=== PATIENT | female | born 1955 | race Caucasian/White ===

== ENCOUNTER → 2017-09-08 | Outpatient (CLI) | payer MEDICARE, OTHER ==
[2015-01-15 10:01] VITALS: BMI 25.1
[~2017-09-08] MED LIST: ALBU8.5H IH; AMOX-559 PO; ASPI-879 PO; AZIT-1 PO; AZIT-18 PO; BENZ200C15 PO; BUPR1PAT10 TD; BUPR1PAT10 TP; CEF300 PO; CETI10CA8 PO; CLAR250T35 PO; DICL100G39 TOP; DICY20TA70 PO; DOXY-179 PO; DOXY-181 PO; FLU45SYR17 IM; FLU45SYR25 IM ONLY; FLUC150T40 PO; FLUT16SP19 NS; FLUT1BLS3 INH; GUAI600T57 PO; HYDR-393 PO; HYDR-4305 PO; HYDR12.561 PO; IPRA3AMP21 IH; LEVA0.6320 NEB; LEVO-85 PO; METO100T20 PO; MUPI15CR2 TP; OLOOD OU; ONDA4TAB97 PO; OXYGENHOME INH; PANT40TA65 PO; POLY10DR20 OP; PRED-1 PO; PRED20TA6 PO; RANI75TA5 PO; SIMV-54 PO; TAPE100T9 PO; TAPE50TA10 PO; TIOT4MIS5 INH; VALA100059 PO; ZOST19404 SQ; nebulizer
--- NOTE | 2017-09-08 16:09 | RADIOLOGY IMAGING REPORT ---
FACILITY: [facility] - [place] PATIENT NAME: Trice Tabares : 1955 MR: [id number] V: [id number] EXAM DATE: ORDERING PHYSICIAN: TRUPTI FERRO TECHNOLOGIST: Location: [facility] [place] Patient: Trice Tabares : 1955 Visit/Account:[id number] Date of Sevice: 09/08/2017 Examination: CHEST PA AND LAT Comparison: None. History: Cough x10 days Findings: Cardiac silhouette size is within normal limits. Mild interstitial thickening. No consolida tion or nodule. Mild lung base volume loss versus scarring. Osseous structures are intact. IMPRESSION: Mild bronchial thickening which could be an acute versus chronic bronchitis or reactive airway diseas e. Report Dictated By: Jimenez Seay MD at 09/08/2017 4:04 PM Report E-Signed By: Jimenez Seay MD at 09/08/2017 4:07 PM WSN:[id number]
== END ==
LOC: RAD 15:28
PROVIDERS: ATTEND Nurse Practitioner Primary Care
DX: R91.8 Other nonspecific abnormal finding of lung field (principal)
CPT/HCPCS: 71046

== ENCOUNTER 2017-11-07 10:25 | Emergency (ER) | payer MEDICARE, OTHER ==
[2015-01-15 10:01] VITALS: Wt 72.7 kg
[~2017-11-07 10:25] MED LIST changes: +CITA-137 PO
[2017-11-07] MEDS ORDERED: RANI-366 PO (10:46)
[2017-11-07] MEDS ORDERED: CLIN300C99 PO (10:46)
[2017-11-07] MEDS ORDERED: OMEP-218 PO (10:46)
[2017-11-07] MEDS ORDERED: NS(*) 0.9% 1000 ML BAG 1,000 ML IV ONE (10:55)
--- NOTE | 2017-11-07 11:12 | ER Report ---
History and Physical Time Seen By MD: 11:09 Hx. of Stated Complaint: PT REPORTS LOW ABDOMINAL PAIN AND PAIN WITH BOWEL MOVEMENTS, BRIGHT RED BLOOD IN BOWEL MOVEMENTS FOR SEVERAL HOURS THIS MORNING, X4/5, MUCOUS-LIKE; HAS DENTAL PROBLEMS AND UNABLE TO CHEW FOOD WELL HPI/ROS CHIEF COMPLAINT: Abdominal pain HISTORY OF PRESENT ILLNESS: This is a 62-year-old female who presents to the emergency department for abdominal pain. Patient states that about 06/01/1929 this morning she woke up with. The intense abdominal pain. Patient states she went to the bathroom had some loose stools with some very firm small pellets as well. Patient's also states that this happen several times throughout the night however she noticed the last time she went to the bathroom there was bright red blood with some mucus mixed in. Patient states she typically has "constipation issues" secondary to chronic opioid use for her osteoarthritis and fibromyalgia. Patient denies aches, chills, nausea, vomiting no chest pain or shortness of breath. REVIEW OF SYSTEMS: Constitutional: No fever, no chills. Eyes: No discharge. ENT: No sore throat. Cardiovascular: No chest pain, no palpitations. Respiratory: No cough, no shortness of breath. Gastrointestinal: As above. Genitourinary: No hematuria. Musculoskeletal: No back pain. Skin: No rashes. Neurological: No headache. Allergies: Coded Allergies: duloxetine (Verified Allergy, Mild, RASH, 09/17/17) Sulfa (Sulfonamide Antibiotics) (Unverified Allergy, Unknown, 01/13/15) gabapentin (Unverified Allergy, Unknown, 01/24/15) pregabalin (Unverified Allergy, Unknown, HIVES, 01/24/15) levofloxacin (Verified Adverse Reaction, Unknown, 05/11/15) ankle pain and diarrhea Home Meds Active Scripts Ciprofloxacin Hcl (CIPROFLOXACIN HCL) 500 Mg Tablet, 500 MG PO QID for 7 Days, # 28 TAB 0 Refills Prov:BRENT JAFFE NURSE ESTHETICIAN-BC 11/07/17 Metronidazole (METRONIDAZOLE) 500 Mg Tablet, 500 MG PO TID for 7 Days, #21 TAB 0 Refills Prov:BRENT JAFFE NURSE ESTHETICIAN-BC 11/07/17 Acetaminophen/Hydrocodone (HYDROCODON-ACETAMINOPHN 10-325) 1 Each Tab, 1 EACH PO Q6H Y for PAIN, #30 TAB 0 Refills Prov:STEFFI CHRISTENSEN APRN-C 10/27/17 Metoprolol Succinate (METOPROLOL SUCCINATE) 100 Mg Tab.er.24h, 1 TAB PO BID, # 180 TAB 1 Refill Prov:STEFFI CHRISTENSEN APRN-C 09/28/17 Buprenorphine (Butrans) 1 Each Patch.tdwk, 1 PATCH TP QWEEK, #4 PATCH 0 Refills Prov:STEFFI CHRISTENSEN APRN-C 09/17/17 Tapentadol Hcl (NUCYNTA) 100 Mg Tablet, 1 TAB PO BID, #60 TAB 0 Refills May fill on or after 08/18/17 Prov:STEFFI CHRISTENSEN APRN-C 09/17/17 Fluticasone Prop 50 Mcg Ns (FLONASE 50 MCG NS) 16 Gm [place].susp, 2 SPRAYS NS QDAY, #1 BOT 1 Refill Prov:TRUPTI FERRO DNP, FNP-SOUTH 09/14/17 Polymyxin B Sulf/Trimethoprim (POLYTRIM EYE DROPS) 10 Ml Drops, 1 DROP OP QID for 10 Days, #1 BOTTLE 0 Refills 1 drop to each eye four times daily for 10 days. Prov:TRUPTI FERRO DNP, FNP-BC 07/27/17 Mupirocin Chris 2% Cream (MUPIROCIN 2% CREAM) 15 Gm Cream..g., 1 SANCHO TP TID, #1 TUBE 1 Refill Apply to lesion 3 times daily until resolved - follow up if not improving after 3-5 days Prov:STEFFI CHRISTENSEN APRN-C 06/19/17 Simvastatin (SIMVASTATIN) 40 Mg Tablet, 1 TAB PO HS, #90 TAB 3 Refills Prov:STEFFI CHRISTENSEN APRN-C 04/22/17 Hydrochlorothiazide (HYDROCHLOROTHIAZIDE) 12.5 Mg Tablet, 1 TAB PO QDAY, #90 TAB 3 Refills Prov:STEFFI CHRISTENSEN APRN-C 03/02/17 Dicyclomine Hcl (DICYCLOMINE HCL) 20 Mg Tablet, 1 TAB PO QID Y for bowel cramps , #40 TAB 0 Refills Prov:TRUPTI FERRO DNP, FNP-BC 12/26/16 Olopatadine (PATANOL) 5 Ml Soln, 1 GTT OU BID, #5 ML 5 Refills Prov:TRUPTI FERRO DNP, NURSE ESTHETICIAN-BC 09/19/16 Reported Medications Clindamycin Hcl (CLINDAMYCIN HCL) 300 Mg Capsule, 150 MG PO Q6H, #40 CAPSULE 11/07/17 Ranitidine Hcl (ZANTAC) 150 Mg Tablet, 150 MG PO QDAY, TAB 11/07/17 Omeprazole Magnesium (PRILOSEC OTC) 20 Mg Tablet.dr, 1 TAB PO QDAY, TAB 11/07/17 Albuterol Sulfate 90 Mcg/Act (PROAIR HFA 90 MCG/ACT) 8.5 Gm Hfa.aer.ad, 2 PUFF IH Q4-6H, INHALER 07/15/16 Tiotropium [place] (Spiriva Respimat) Unknown Strength Mist.inhal, 2 INH INH DAILY 07/15/16 Cetirizine Hcl (ZYRTEC) 10 Mg Capsule, 10 MG PO QDAY, CAPSULE 01/13/15 Aspirin/Calcium Carbonate/Mag (ASPIRIN BUFFERED 325 MG TAB) 325 Mg Tablet, 325 MG PO BID 01/13/15 Discontinued Scripts Citalopram Hydrobromide (CITALOPRAM HBR) 10 Mg Tablet, 1 TAB PO QDAY, #30 TAB 2 Refills start with 1/2 tab dialy x 1 week then increase to 1 tab daily Prov:STEFFI CHRISTENSEN APRN NURSE ESTHETICIAN-C 09/17/17 Ipratropium/Albuterol Sulfate (IPRAT-ALBUT 0.5-3(2.5) MG/3 ML) 3 Ml Ampul.neb, 3 ML IH Q4-6H Y for WHEEZING, #30 VIAL 0 Refills Prov:TRUPTI FERRO DNP, NURSE ESTHETICIAN-BC 09/02/17 Pantoprazole Sodium (PANTOPRAZOLE SODIUM) 40 Mg Tablet.dr, 1 TAB PO BID, #60 TAB 0 Refills Take 1 tablet every morning and every evening at least 1/2 hour before eating. 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 Reviewed Nurses Notes: Yes Hx Smoking: Yes (1.5-2 packs a day) Smoking Status: Current: Every Day Smoker Hx Substance Use Disorder: No Hx Alcohol Use: No Constitutional Vital Sign - Last 24 Hours 11/07/17 11/07/17 11/07/17 11/07/17 10:25 10:30 10:34 10:40 Temp 98.2 Pulse ??? 58 54 Resp 16 B/P (MAP) 146/65 146/65 (92) Pulse Ox 91 93 O2 Delivery Nasal Cannula 11/07/17 11/07/17 11/07/17 11/07/17 10:55 11:00 11:10 11:25 Pulse 50 50 50 B/P (MAP) 107/67 (80) Pulse Ox 91 90 91 11/07/17 11/07/17 11/07/17 11/07/17 11:30 11:45 12:00 12:15 Pulse ? 53 55 B/P (MAP) 105/55 (72) 116/62 (80) Pulse Ox 96 95 11/07/17 11/07/17 12:30 12:45 Pulse 53 54 B/P (MAP) 107/55 (72) Pulse Ox 94 95 Intake and Output 11/07/17 11/07/17 11/08/17 14:59 22:59 06:59 Intake Total 1000 ml Balance 1000 ml Physical Exam General Appearance: The patient is alert, has no immediate need for airway protection and no signs of toxicity, wearing oxygen. Eyes: Pupils equal and round no pallor or injection. ENT, Mouth: Mucous membranes are moist. Respiratory: There are no retractions, lungs are clear to auscultation. Cardiovascular: Regular rate and rhythm. Gastrointestinal: Abdomen is soft and tenderness to the left lower quadrant, no masses, bowel sounds normal. Neurological: Alert and oriented 4. All extremities. Following all commands. No focal neuro deficits. Skin: Warm and dry, no rashes. Musculoskeletal: Neck is supple non tender. Extremities are nontender, nonswollen and have full range of motion. DIFFERENTIAL DIAGNOSIS: After history and physical exam differential diagnosis was considered for abdominal pain including but not limited to appendicitis, constipation, cholecystitis, gastritis and urinary tract infection. abdominal pain in a female including but not limited to ovarian cyst, pelvic inflammatory disease, ovarian torsion, urinary tract infection, and appendicitis. Medical Decision Making Data Points Result Diagram: 11/07/17 1105 11/07/17 1105 Laboratory Hematology Test 11/07/17 10:45 11/07/17 11:05 Urine Color Yellow Urine Clarity Slightly-cloudy Urine pH 5.0 pH (4.8-9.5) Urine Specific [place] 1.019 Urine Protein Negative mg/dL (NEGATIVE) Urine Glucose (UA) Negative mg/dL (NEGATIVE) Urine Ketones Negative mg/dL (NEGATIVE) Urine Blood Small (NEGATIVE) Urine Nitrite Negative (NEGATIVE) Urine Bilirubin Negative (NEGATIVE) Urine Urobilinogen Negative mg/dL (0.2-1.9) Urine Leukocyte Esterase Negative (NEGATIVE) Urine RBC 1 /HPF (0-2/HPF) Urine WBC 1 /HPF (0-5/HPF) Urine Squamous Epithelial Cells Many /LPF (</=FEW) Urine Bacteria Few /HPF (NONE-FEW) Urine Mucus None /HPF (NONE-FEW) Red Blood Count 5.52 M/uL (4.17-5.56) Mean Corpuscular Volume 94.5 fL (80.0-96.0) Mean Corpuscular Hemoglobin 32.5 pg (26.0-33.0) Mean Corpuscular Hemoglobin Concent 34.4 g/dL (32.0-36.0) Red Cell Distribution Width 13.7 % (11.5-14.5) Mean Platelet Volume 7.1 fL (7.2-11.1) Neutrophils (%) (Auto) 76.1 % (39.4-72.5) Lymphocytes (%) (Auto) 16.6 % (17.6-49.6) Monocytes (%) (Auto) 5.9 % (4.1-12.4) Eosinophils (%) (Auto) 0.7 % (0.4-6.7) Basophils (%) (Auto) 0.7 % (0.3-1.4) Nucleated RBC Relative Count (auto) 0.0 /100WBC Neutrophils # (Auto) 5.6 K/uL (2.0-7.4) Lymphocytes # (Auto) 1.2 K/uL (1.3-3.6) Monocytes # (Auto) 0.4 K/uL (0.3-1.0) Eosinophils # (Auto) 0.1 K/uL (0.0-0.5) Basophils # (Auto) 0.1 K/uL (0.0-0.1) Nucleated RBC Absolute Count (auto) 0.00 K/uL Peripheral Blood Smear No Y/N Sodium Level 138 mmol/L (137-145) Potassium Level 3.7 mmol/L (3.5-5.0) Chloride Level 100 mmol/L (98-107) Carbon Dioxide Level 29 mmol/L (22-31) Blood Urea Nitrogen 17 mg/dl (7-18) Creatinine 0.70 mg/dl (0.52-1.04) Glomerular Filtration Rate Calc > 60.0 Random Glucose 148 mg/dl (75-110) Calcium Level 9.4 mg/dl (8.4-10.2) Total Bilirubin 0.6 mg/dl (0.2-1.3) Aspartate Amino Transf (AST/SGOT) 22 U/L (0-35) Alanine Aminotransferase (ALT/SGPT) 23 U/L (0-56) Alkaline Phosphatase 67 U/L (0-126) Total Protein 6.8 gm/dl (6.3-8.2) Albumin 3.9 g/dl (3.5-5.0) Chemistry Test 11/07/17 10:45 11/07/17 11:05 Urine Color Yellow Urine Clarity Slightly-cloudy Urine pH 5.0 pH (4.8-9.5) Urine Specific [place] 1.019 Urine Protein Negative mg/dL (NEGATIVE) Urine Glucose (UA) Negative mg/dL (NEGATIVE) Urine Ketones Negative mg/dL (NEGATIVE) Urine Blood Small (NEGATIVE) Urine Nitrite Negative (NEGATIVE) Urine Bilirubin Negative (NEGATIVE) Urine Urobilinogen Negative mg/dL (0.2-1.9) Urine Leukocyte Esterase Negative (NEGATIVE) Urine RBC 1 /HPF (0-2/HPF) Urine WBC 1 /HPF (0-5/HPF) Urine Squamous Epithelial Cells Many /LPF (</=FEW) Urine Bacteria Few /HPF (NONE-FEW) Urine Mucus None /HPF (NONE-FEW) White Blood Count 7.3 k/uL (4.5-11.0) Red Blood Count 5.52 M/uL (4.17-5.56) Hemoglobin 17.9 g/dL (12.0-16.0) Hematocrit 52.1 % (34.0-47.0) Mean Corpuscular Volume 94.5 fL (80.0-96.0) Mean Corpuscular Hemoglobin 32.5 pg (26.0-33.0) Mean Corpuscular Hemoglobin Concent 34.4 g/dL (32.0-36.0) Red Cell Distribution Width 13.7 % (11.5-14.5) Platelet Count 204 K/uL (150-450) Mean Platelet Volume 7.1 fL (7.2-11.1) Neutrophils (%) (Auto) 76.1 % (39.4-72.5) Lymphocytes (%) (Auto) 16.6 % (17.6-49.6) Monocytes (%) (Auto) 5.9 % (4.1-12.4) Eosinophils (%) (Auto) 0.7 % (0.4-6.7) Basophils (%) (Auto) 0.7 % (0.3-1.4) Nucleated RBC Relative Count (auto) 0.0 /100WBC Neutrophils # (Auto) 5.6 K/uL (2.0-7.4) Lymphocytes # (Auto) 1.2 K/uL (1.3-3.6) Monocytes # (Auto) 0.4 K/uL (0.3-1.0) Eosinophils # (Auto) 0.1 K/uL (0.0-0.5) Basophils # (Auto) 0.1 K/uL (0.0-0.1) Nucleated RBC Absolute Count (auto) 0.00 K/uL Peripheral Blood Smear No Y/N Glomerular Filtration Rate Calc > 60.0 Calcium Level 9.4 mg/dl (8.4-10.2) Total Bilirubin 0.6 mg/dl (0.2-1.3) Aspartate Amino Transf (AST/SGOT) 22 U/L (0-35) Alanine Aminotransferase (ALT/SGPT) 23 U/L (0-56) Alkaline Phosphatase 67 U/L (0-126) Total Protein 6.8 gm/dl (6.3-8.2) Albumin 3.9 g/dl (3.5-5.0) Urinalysis Test 6/9/18 10:45 Urine Color Yellow Urine Clarity Slightly-cloudy Urine pH 5.0 pH (4.8-9.5) Urine Specific [place] 1.019 Urine Protein Negative mg/dL (NEGATIVE) Urine Glucose (UA) Negative mg/dL (NEGATIVE) Urine Ketones Negative mg/dL (NEGATIVE) Urine Blood Small (NEGATIVE) Urine Nitrite Negative (NEGATIVE) Urine Bilirubin Negative (NEGATIVE) Urine Urobilinogen Negative mg/dL (0.2-1.9) Urine Leukocyte Esterase Negative (NEGATIVE) Urine RBC 1 /HPF (0-2/HPF) Urine WBC 1 /HPF (0-5/HPF) Urine Squamous Epithelial Cells Many /LPF (</=FEW) Urine Bacteria Few /HPF (NONE-FEW) Urine Mucus None /HPF (NONE-FEW) EKG/Imaging Imaging CT abdomen and pelvis with IV contrast Indication: Rectal bleeding with left lower abdominal pain. Comparison: 09/17/2016.. Technique: Axial CT images were obtained through the abdomen and pelvis during injection of nonionic iodinated intravenous contrast. Reformatted coronal and sagittal images were also obtained. One of the following dose optimization techniques was utilized in the performance of this exam: Automated exposure control; adjustment of the mA and/ or kV according to the patient's size; or use of an iterative reconstruction technique. Specific details can be referenced in the facility's radiology CT exam operational policy. Contrast: 75 ml of Isovue-370 IV contrast. Findings: Lower lung yan: Dependent atelectasis and scarring. Liver: No focal parenchymal abnormality of the liver. Biliary: Gallbladder appears unremarkable as well as the intra and extra hepatic biliary system. Pancreas: Normal appearance. Spleen: Normal appearance. Adrenal glands: Unremarkable. Kidneys / retroperitoneum: No evidence of nephrolithiasis or hydronephrosis. No focal abnormality. Bowel / peritoneum / mesenteries: There is diffuse wall thickening of the descending colon with pericolonic inflammation. No focal lesion is identified. This continues into the distal transverse colon. The distal descending colon; show several diverticula without other areas of inflammation. The remaining colon is unremarkable. The appendix is not definitely visualized. Small bowel shows no focal abnormality or obstruction. The stomach is unremarkable. No free air, free fluid, fluid collections or areas of inflammation. Lymph node assessment: No pathologic adenopathy identified. Pelvic structures: Status post hysterectomy. The remaining pelvic structures visualized within normal limits. Vessels: Mild atherosclerotic calcifications seen throughout a nonaneurysmal abdominal aorta and branches. Musculoskeletal / Body wall: No acute or aggressive osseous abnormality. Continued degenerative changes spine more prominent at the upper lumbar spine and unchanged. IMPRESSION: 1. Colitis of the distal transverse colon and descending colon with surrounding inflammation. No focal lesion is identified. No indication of perforation or fluid collection. This is most likely due to diverticular disease as there are multiple diverticula seen along the distal descending and sigmoid colon without other areas of acute inflammation. Report Dictated By: Amanuel Ring at 11/07/2017 12:10 PM Report E-Signed By: Amanuel Ring at 11/07/2017 12:22 PM WSN:[id number] ED Course/Re-evaluation Clinical Indication for ER IV: Hydration, IV Access ED Course The patient was admitted to room. A history of physical were obtained. Differential diagnoses were considered. An IV was started. A CBC, CMP were obtained. A UA was obtained. A 1 liter NS bolus was given. Lab studies unremarkable. Negative urine. A CT of the abdomen and pelvis showing a colitis no diverticulitis. I did review the lab studies and the CT report with the patient. As the patient is symptomatic with abdominal pain, mucus infused diarrhea with hematochezia I did elect to treat her with antibiotics. I did give the patient the option of no antibiotics and monitoring, then follow up with her PCP. She agreed that treating with antibiotics would be the best course. The patient was in agreement with this plan of care and discharged home. The patient states she is feeling better after the fluids too. She had no other questions or concerns at this time and discharged home. Return to the ED for any other concerns or worsening symptoms. Decision to Disposition Date: Nov 07, 2017 Decision to Disposition Time: 12:43 Depart Departure Latest Vital Signs Vital Signs Date Time Temp Pulse Resp B/P (MAP) Pulse Ox O2 Delivery O2 Flow Rate FiO2 11/07/17 12:45 54 95 11/07/17 12:30 107/55 (72) 11/07/17 10:30 98.2 16 Nasal Cannula Impression: Primary Impression: Colitis Additional Impressions: Diarrhea Hematochezia Condition: Improved Disposition: HOME OR SELF-CARE Referrals: STEFFI CHRISTENSEN APRN NURSE ESTHETICIAN-C (PCP) New Scripts Ciprofloxacin Hcl (CIPROFLOXACIN HCL) 500 Mg Tablet 500 MG PO QID for 7 Days, #28 TAB 0 Refills Prov: BRENT JAFFE NURSE ESTHETICIAN- 11/07/17 Metronidazole (METRONIDAZOLE) 500 Mg Tablet 500 MG PO TID for 7 Days, #21 TAB 0 Refills Prov: BRENT JAFFE NURSE ESTHETICIAN-BC 11/07/17 Patient Instructions: Acute Diarrhea (ED), Colitis (ED) Additional Instructions: Drink plenty of water. Get plenty of rest. Consider adding half Of MiraLAX T or daily bowel regimen. Take the antibiotics as prescribed. And a probiotic to your daily bowel regiment while on the antibiotics, be sure to take this as far apart from the antibiotics as possible. Follow-up with your primary care provider as indicated. Return to the emergency department for any concerns or worsening symptoms. Problem Qualifiers Additional Impressions: Diarrhea Diarrhea type: unspecified type Qualified Codes: R19.7 - Diarrhea, unspecified BRENT JAFFE [facility]- Nov 07, 2017 11:12
[2017-11-07 11:17] LABS: PLATELET COUNT, AUTOMATED 204 K/uL (150-450)
[2017-11-07] MEDS ORDERED: IOPAMIDOL 76% 75 ML INFUS BTL 75 ML ONE (11:28)
[2017-11-07] MEDS ORDERED: NS 0.9% 20 ML SDV 20 ML ONE (11:28)
--- NOTE | 2017-11-07 12:27 | RADIOLOGY IMAGING REPORT ---
FACILITY: [facility] PATIENT NAME: Trice Tabares : 1955 MR: [id number] V: [id number] EXAM DATE: ORDERING PHYSICIAN: BANG ZHOU TECHNOLOGIST: Location: [facility] - [place] Patient: Trice Tabares : 1955 Visit/Account:[id number] Date of Sevice: 11/07/2017 CT abdomen and pelvis with IV contrast Indication: Rectal bleeding with left lower abdominal pain. Comparison: 09/17/2016.. Technique: Axial CT images were obtained through the abdomen and pelvis during injection of nonioni c iodinated intravenous contrast. Reformatted coronal and sagittal images were also obtained. One of the following dose optimization techniques was utilized in the performance of this exam: Autom ated exposure control; adjustment of the mA and/or kV according to the patient's size; or use of an i terative reconstruction technique. Specific details can be referenced in the facility's radiology C T exam operational policy. Contrast: 75 ml of Isovue-370 IV contrast. Findings: Lower lung yan: Dependent atelectasis and scarring. Liver: No focal parenchymal abnormality of the liver. Biliary: Gallbladder appears unremarkable as well as the intra and extra hepatic biliary system. Pancreas: Normal appearance. Spleen: Normal appearance. Adrenal glands: Unremarkable. Kidneys / retroperitoneum: No evidence of nephrolithiasis or hydronephrosis. No focal abnormality. Bowel / peritoneum / mesenteries: There is diffuse wall thickening of the descending colon with peric olonic inflammation. No focal lesion is identified. This continues into the distal transverse colon. The distal descending colon; show several diverticula without other areas of inflammation. The remain ing colon is unremarkable. The appendix is not definitely visualized. Small bowel shows no focal abno rmality or obstruction. The stomach is unremarkable. No free air, free fluid, fluid collections or areas of inflammation. Lymph node assessment: No pathologic adenopathy identified. Pelvic structures: Status post hysterectomy. The remaining pelvic structures visualized within nor mal limits. Vessels: Mild atherosclerotic calcifications seen throughout a nonaneurysmal abdominal aorta and bran ches. Musculoskeletal / Body wall: No acute or aggressive osseous abnormality. Continued degenerative garcía es spine more prominent at the upper lumbar spine and unchanged. IMPRESSION: 1. Colitis of the distal transverse colon and descending colon with surrounding inflammation. No foca l lesion is identified. No indication of perforation or fluid collection. This is most likely due to diverticular disease as there are multiple diverticula seen along the distal descending and sigmoid c olon without other areas of acute inflammation. Report Dictated By: Amanuel Ring at 11/07/2017 12:10 PM Report E-Signed By: Amanuel Ring at 11/07/2017 12:22 PM WSN:[id number]
[2017-11-07 12:30] VITALS: BP 107/55
[2017-11-07] MEDS ORDERED: CIPR-214 PO (12:55)
[2017-11-07] MEDS ORDERED: METR-160 PO (12:55)
== END 2017-11-07 13:10 | disposition home or self-care (01) ==
LOC: ER 10:29
DX: K52.9 Noninfective gastroenteritis and colitis, unspecified (principal); K92.1 Melena; F17.210 Nicotine dependence, cigarettes, uncomplicated
CPT/HCPCS: 74177; 81001; 85025; 96360; 99284; J7030; J7050; Q9967; 82040; 82247; 82310; 82374; 82435; 82565; 82947; 84075; 84132; 84155; 84295; 84450; 84460; 84520

== ENCOUNTER 2018-01-26 17:11 | Emergency (ER) | payer MEDICARE, OTHER ==
[2015-01-15 10:01] VITALS: Wt 100.4 kg
[~2018-01-26 17:11] MED LIST changes: +CIPR-214 PO; +CLIN300C99 PO; +HYDR-385 PO; +IPRA3AMP10 IH; -IPRA3AMP21 IH; +METR-160 PO; +OMEP-218 PO; +RANI-366 PO; +ROSU10TA5 PO
--- NOTE | 2018-01-26 17:23 | ER Report ---
History and Physical Time Seen By MD: 17:20 HPI/ROS CHIEF COMPLAINT: Abdominal pain HISTORY OF PRESENT ILLNESS: This is a 60-year-old female who presents to the emergency department for abdominal pain. The patient has a history of colitis and diverticulitis was given antibiotics has been through at least 2 courses of antibiotics, is currently on Cipro. Patient states that she does feel somewhat constipated, she does stool on a daily basis. Patient states that she had a few small parish yesterday and then one small pebble today. Patient is unsure if this is related to constipation or if this is related to colitis. However the patient was recently started on hydrocodone for her chronic pain. Patient also has some discomfort with urination, no frequency or urgency. No aches or chills. No nausea or vomiting. No chest pain or shortness of breath. REVIEW OF SYSTEMS: Constitutional: No fever, no chills. Eyes: No discharge. ENT: No sore throat. Cardiovascular: No chest pain, no palpitations. Respiratory: No cough, no shortness of breath. Gastrointestinal: As above. Genitourinary: As above. Musculoskeletal: No back pain. Skin: No rashes. Neurological: No headache. Allergies: Coded Allergies: duloxetine (Verified Allergy, Mild, RASH, 09/17/17) Sulfa (Sulfonamide Antibiotics) (Unverified Allergy, Unknown, 01/13/15) gabapentin (Unverified Allergy, Unknown, 01/24/15) pregabalin (Unverified Allergy, Unknown, HIVES, 01/24/15) levofloxacin (Verified Adverse Reaction, Unknown, 05/11/15) ankle pain and diarrhea Home Meds Active Scripts Metronidazole (FLAGYL) 500 Mg Tablet, 500 MG PO TID for 10 Days, #29 TAB 0 Refills Prov:BRENT JAFFE SERGER-BC 01/26/18 Amoxicillin/Pot Clav 875-125 Mg Tab (AUGMENTIN 875-125 TABLET) 1 Each Tablet, 1 TAB PO Q12H, #20 TAB 0 Refills Prov:STEFFI CHRISTENSEN APRNP-C 01/15/18 Hydrocodone Bit/Acetaminophen (HYDROCODON-ACETAMINOPHEN 5-325) 1 Each Tablet, 1 EACH PO Q6H PRN for PAIN, #120 TAB 0 Refills Prov:STEFFI CHRISTENSEN APRN SERGER-C 01/07/18 Hydrochlorothiazide (HYDROCHLOROTHIAZIDE) 12.5 Mg Tablet, 1 TAB PO QDAY, #90 TAB 2 Refills Prov:STEFFI CHRISTENSEN APRN-C 12/10/17 Buprenorphine (Butrans) 1 Each Patch.tdwk, 1 PATCH TP QWEEK, #4 PATCH 0 Refills May fill on or after 02/08/18 Prov:STEFFI CHRISTENSEN APRN 12/10/17 Rosuvastatin Calcium (Rosuvastatin Calcium) 10 Mg Tablet, 1 TAB PO DAILY, #90 TAB 0 Refills Prov:STEFFI CHRISTENSEN APRN 12/10/17 Metoprolol Succinate (METOPROLOL SUCCINATE) 100 Mg Tab.er.24h, 1 TAB PO BID, #180 TAB 1 Refill Prov:STEFFI CHRISTENSEN APRN 09/28/17 Fluticasone Prop 50 Mcg Ns (FLONASE 50 MCG NS) 16 Gm [place].susp, 2 SPRAYS NS QDAY, #1 BOT 1 Refill Prov:TRUPTI FERRO DNP, FNP-SOUTH 09/14/17 Mupirocin Chris 2% Cream (MUPIROCIN 2% CREAM) 15 Gm Cream..g., 1 SANCHO TP TID, #1 TUBE 1 Refill Apply to lesion 3 times daily until resolved - follow up if not improving after 3-5 days Prov:STEFFI CHRISTENSEN APRNC 06/19/17 Dicyclomine Hcl (DICYCLOMINE HCL) 20 Mg Tablet, 1 TAB PO QID PRN for bowel cramps, #40 TAB 0 Refills Prov:TRUPTI FERRO DNP, FNP-BC 12/26/16 Olopatadine (PATANOL) 5 Ml Soln, 1 GTT OU BID, #5 ML 5 Refills Prov:TRUPTI FERRO DNP, FNP-BC 09/19/16 Reported Medications Omeprazole Magnesium (PRILOSEC OTC) 20 Mg Tablet.dr, 1 TAB PO QDAY, TAB 11/07/17 Albuterol Sulfate 90 Mcg/Act (PROAIR HFA 90 MCG/ACT) 8.5 Gm Hfa.aer.ad, 2 PUFF IH Q4-6H, INHALER 07/15/16 Tiotropium [place] (Spiriva Respimat) Unknown Strength Mist.inhal, 2 INH INH DAILY 07/15/16 Cetirizine Hcl (ZYRTEC) 10 Mg Capsule, 10 MG PO QDAY, CAPSULE 01/13/15 Aspirin/Calcium Carbonate/Mag (ASPIRIN BUFFERED 325 MG TAB) 325 Mg Tablet, 325 MG PO BID 01/13/15 Discontinued Reported Medications Ranitidine Hcl (ZANTAC) 150 Mg Tablet, 150 MG PO QDAY, TAB 11/07/17 Discontinued Scripts Polymyxin B Sulf/Trimethoprim (POLYTRIM EYE DROPS) 10 Ml Drops, 1 DROP OP QID for 10 Days, #1 BOTTLE 0 Refills 1 drop to each eye four times daily for 10 days. Prov:TRUPTI FERRO DNP, SERGER-BC 07/27/17 Past Medical/Surgical History Patient has a past medical and surgical history of fibromyalgia, CVA, migraines, bigeminy, hypertension, hypercholesterolemia COPD, pneumonia, GERD, osteoarthritis, dental abscess, wears glasses, melanoma of left arm, appendectomy, right foot surgery, Lasix eye surgery. Reviewed Nurses Notes: Yes Hx Smoking: Yes (1.5-2 packs a day) Smoking Status: Current: Every Day Smoker Hx Substance Use Disorder: No Hx Alcohol Use: No Constitutional Vital Sign - Last 24 Hours 01/26/18 01/26/18 01/26/18 01/26/18 17:19 17:20 17:26 17:30 Temp 98.0 Pulse 61 52 Resp 16 B/P (MAP) 141/90 141/90 (107) 127/76 (93) Pulse Ox 80 95 O2 Delivery Room Air 01/26/18 01/26/18 01/26/18 01/26/18 17:41 17:56 18:00 18:03 Pulse ??? 52 B/P (MAP) 120/71 (87) Pulse Ox 93 O2 Flow Rate 3.0 01/26/18 01/26/18 01/26/18 01/26/18 18:11 18:26 18:30 18:41 Pulse 51 49 45 B/P (MAP) 129/71 (90) Pulse Ox 93 94 95 01/26/18 01/26/18 01/26/18 01/26/18 18:46 19:00 19:30 19:46 Pulse 47 52 Resp 20 B/P (MAP) 121/83 (96) 136/65 (88) Pulse Ox 94 94 01/26/18 01/26/18 19:51 20:00 Pulse 53 Resp 13 B/P (MAP) 119/59 (79) Pulse Ox 92 Physical Exam General Appearance: The patient is alert, has no immediate need for airway protection and no signs of toxicity. Eyes: Pupils equal and round no pallor or injection. ENT, Mouth: Mucous membranes are moist. Respiratory: There are no retractions, lungs are clear to auscultation. Cardiovascular: Regular rate and rhythm. Gastrointestinal: Abdomen is soft, with tenderness to the left mid to lower quadrant. No masses, bowel sounds normal. Neurological: Alert and oriented 4. Moving all extremities. Following all commands. No focal neuro deficits. Skin: Warm and dry, no rashes. Musculoskeletal: Neck is supple non tender. Extremities are nontender, nonswollen and have full range of motion. DIFFERENTIAL DIAGNOSIS: After history and physical exam differential diagnosis was considered for abdominal pain in a female including but not limited to ovarian cyst, colitis, constipation, pelvic inflammatory disease, ovarian torsion, urinary tract infection, and appendicitis. Medical Decision Making Data Points Result Diagram: 01/26/18 1835 01/26/18 1835 Laboratory Hematology Test 01/26/18 17:15 01/26/18 18:35 Urine Color Yellow Urine Clarity Slightly-cloudy Urine pH 5.0 pH (4.8-9.5) Urine Specific [place] 1.020 Urine Protein Negative mg/dL (NEGATIVE) Urine Glucose (UA) Negative mg/dL (NEGATIVE) Urine Ketones Negative mg/dL (NEGATIVE) Urine Blood Small (NEGATIVE) Urine Nitrite Negative (NEGATIVE) Urine Bilirubin Negative (NEGATIVE) Urine Urobilinogen Negative mg/dL (0.2-1.9) Urine Leukocyte Esterase Negative (NEGATIVE) Urine RBC 1 /HPF (0-2/HPF) Urine WBC 2 /HPF (0-5/HPF) Urine Squamous Epithelial Cells Many /LPF (</=FEW) Urine Bacteria Negative /HPF (NONE-FEW) Urine Mucus None /HPF (NONE-FEW) Red Blood Count 5.16 M/uL (4.17-5.56) Mean Corpuscular Volume 94.9 fL (80.0-96.0) Mean Corpuscular Hemoglobin 32.7 pg (26.0-33.0) Mean Corpuscular Hemoglobin Concent 34.5 g/dL (32.0-36.0) Red Cell Distribution Width 14.0 % (11.5-14.5) Mean Platelet Volume 7.6 fL (7.2-11.1) Neutrophils (%) (Auto) 55.9 % (39.4-72.5) Lymphocytes (%) (Auto) 32.0 % (17.6-49.6) Monocytes (%) (Auto) 9.2 % (4.1-12.4) Eosinophils (%) (Auto) 2.1 % (0.4-6.7) Basophils (%) (Auto) 0.8 % (0.3-1.4) Nucleated RBC Relative Count (auto) 0.0 /100WBC Neutrophils # (Auto) 3.1 K/uL (2.0-7.4) Lymphocytes # (Auto) 1.8 K/uL (1.3-3.6) Monocytes # (Auto) 0.5 K/uL (0.3-1.0) Eosinophils # (Auto) 0.1 K/uL (0.0-0.5) Basophils # (Auto) 0.0 K/uL (0.0-0.1) Nucleated RBC Absolute Count (auto) 0.00 K/uL Sodium Level 139 mmol/L (137-145) Potassium Level 4.0 mmol/L (3.5-5.0) Chloride Level 99 mmol/L (98-107) Carbon Dioxide Level 32 mmol/L (22-31) Blood Urea Nitrogen 16 mg/dl (7-18) Creatinine 0.60 mg/dl (0.52-1.04) Glomerular Filtration Rate Calc > 60.0 Random Glucose 92 mg/dl (75-110) Calcium Level 9.1 mg/dl (8.4-10.2) Total Bilirubin 0.6 mg/dl (0.2-1.3) Aspartate Amino Transf (AST/SGOT) 17 U/L (0-35) Alanine Aminotransferase (ALT/SGPT) 21 U/L (0-56) Alkaline Phosphatase 58 U/L (0-126) Total Protein 7.0 g/dl (6.3-8.2) Albumin 4.0 g/dl (3.5-5.0) Chemistry Test 01/26/18 17:15 01/26/18 18:35 Urine Color Yellow Urine Clarity Slightly-cloudy Urine pH 5.0 pH (4.8-9.5) Urine Specific [place] 1.020 Urine Protein Negative mg/dL (NEGATIVE) Urine Glucose (UA) Negative mg/dL (NEGATIVE) Urine Ketones Negative mg/dL (NEGATIVE) Urine Blood Small (NEGATIVE) Urine Nitrite Negative (NEGATIVE) Urine Bilirubin Negative (NEGATIVE) Urine Urobilinogen Negative mg/dL (0.2-1.9) Urine Leukocyte Esterase Negative (NEGATIVE) Urine RBC 1 /HPF (0-2/HPF) Urine WBC 2 /HPF (0-5/HPF) Urine Squamous Epithelial Cells Many /LPF (</=FEW) Urine Bacteria Negative /HPF (NONE-FEW) Urine Mucus None /HPF (NONE-FEW) White Blood Count 5.5 k/uL (4.5-11.0) Red Blood Count 5.16 M/uL (4.17-5.56) Hemoglobin 16.9 g/dL (12.0-16.0) Hematocrit 49.0 % (34.0-47.0) Mean Corpuscular Volume 94.9 fL (80.0-96.0) Mean Corpuscular Hemoglobin 32.7 pg (26.0-33.0) Mean Corpuscular Hemoglobin Concent 34.5 g/dL (32.0-36.0) Red Cell Distribution Width 14.0 % (11.5-14.5) Platelet Count 201 K/uL (150-450) Mean Platelet Volume 7.6 fL (7.2-11.1) Neutrophils (%) (Auto) 55.9 % (39.4-72.5) Lymphocytes (%) (Auto) 32.0 % (17.6-49.6) Monocytes (%) (Auto) 9.2 % (4.1-12.4) Eosinophils (%) (Auto) 2.1 % (0.4-6.7) Basophils (%) (Auto) 0.8 % (0.3-1.4) Nucleated RBC Relative Count (auto) 0.0 /100WBC Neutrophils # (Auto) 3.1 K/uL (2.0-7.4) Lymphocytes # (Auto) 1.8 K/uL (1.3-3.6) Monocytes # (Auto) 0.5 K/uL (0.3-1.0) Eosinophils # (Auto) 0.1 K/uL (0.0-0.5) Basophils # (Auto) 0.0 K/uL (0.0-0.1) Nucleated RBC Absolute Count (auto) 0.00 K/uL Glomerular Filtration Rate Calc > 60.0 Calcium Level 9.1 mg/dl (8.4-10.2) Total Bilirubin 0.6 mg/dl (0.2-1.3) Aspartate Amino Transf (AST/SGOT) 17 U/L (0-35) Alanine Aminotransferase (ALT/SGPT) 21 U/L (0-56) Alkaline Phosphatase 58 U/L (0-126) Total Protein 7.0 g/dl (6.3-8.2) Albumin 4.0 g/dl (3.5-5.0) Urinalysis Test 01/26/18 17:15 Urine Color Yellow Urine Clarity Slightly-cloudy Urine pH 5.0 pH (4.8-9.5) Urine Specific [place] 1.020 Urine Protein Negative mg/dL (NEGATIVE) Urine Glucose (UA) Negative mg/dL (NEGATIVE) Urine Ketones Negative mg/dL (NEGATIVE) Urine Blood Small (NEGATIVE) Urine Nitrite Negative (NEGATIVE) Urine Bilirubin Negative (NEGATIVE) Urine Urobilinogen Negative mg/dL (0.2-1.9) Urine Leukocyte Esterase Negative (NEGATIVE) Urine RBC 1 /HPF (0-2/HPF) Urine WBC 2 /HPF (0-5/HPF) Urine Squamous Epithelial Cells Many /LPF (</=FEW) Urine Bacteria Negative /HPF (NONE-FEW) Urine Mucus None /HPF (NONE-FEW) EKG/Imaging Imaging Location: [facility] Patient: Trice Tabares : 1955 Visit/Account:[id number] Date of Sevice: 01/26/2018 EXAMINATION: Frontal chest with 2 views of the abdomen HISTORY: Evaluate for constipation. COMPARISON: CT abdomen/pelvis 11/07/2017. Chest radiograph 09/08/2017. FINDINGS: There are a few strands of scarring or linear atelectasis in the lower lungs. No new focal consolidation. No pleural effusion or pneumothorax. Stable cardiomediastinal silhouette. Normal bowel gas pattern, with air scattered throughout normal-caliber loops of small bowel and colon. No radiographic evidence of obstruction. Mild volume of scattered colonic stool. No free intraperitoneal air. No evidence of organomegaly or abnormal calcification. No acute osseous findings. Multilevel degenerative changes throughout the spine. IMPRESSION: 1. No evidence of acute cardiopulmonary disease. Mild scarring or atelectasis in the lower lungs. 2. Normal bowel gas pattern. Report Dictated By: Joe Eubanks MD at 01/26/2018 6:02 PM Report E-Signed By: Joe Eubanks MD at 01/26/2018 6:04 PM WSN:[id number] HISTORY: Left lower quadrant pain. Constipation. History of colitis. TECHNIQUE: Axial CT images of the abdomen and pelvis were obtained with IV contrast, with coronal and sagittal 2D reconstructed images. One of the following dose optimization techniques was utilized in the performance of this exam: Automated exposure control; adjustment of the mA and/or kV according to the patient's size; or use of an iterative re construction technique. Specific details can be referenced in the facility's radiology CT exam operational policy. Contrast: 75 mL of IV Isovue-370. COMPARISON: 11/07/2017. FINDINGS: Liver: Fatty infiltration of the liver. Gallbladder and bile ducts: Negative. Spleen: Negative. Pancreas: Negative. Adrenal glands: Negative. Kidneys: No urinary calculi or hydronephrosis. The kidneys enhance normally. Bowel and peritoneum: The small bowel and colon are normal in caliber. No bowel obstruction. Scattered colonic diverticulosis along the descending and sigmoid colon. There is segmental wall thickening and pericolonic stranding along the mid sigmoid colon in the left pelvis, compatible with diverticulitis. No pericolonic abscess. No free fluid or free intraperitoneal air. The appendix is not well visualized. It may be atrophic or surgically absent. Pelvic structures: Hysterectomy. Lymph node assessment: Negative. Vessels: Scattered vascular calcifications. Normal caliber abdominal aorta. Musculoskeletal: Advanced multilevel degenerative changes throughout the spine . No acute osseous findings. Body wall: Negative. Lung bases: Mild parenchymal scarring in the lung bases. IMPRESSION: 1. Acute diverticulitis along the mid sigmoid colon in the left pelvis. No pe ricolonic abscess or free intraperitoneal air. 2. No other acute intra-abdominal findings. Report Dictated By: Joe Eubanks MD at 01/26/2018 7:53 PM ED Course/Re-evaluation Clinical Indication for ER IV: Hydration, IV Access ED Course The patient was admitted to a room. A history and physical were obtained. Differential diagnoses were considered. After my initial assessment the patient and I discussed options and we decided to proceed minimally invasive with a three-view abdominal x-ray which showed mild atelectasis and a bowel pattern. A review this with the patient gave her a couple of options one of which was going home with some mag-citrate to see if this would help with her obstipation or given the recurrence of this we could repeat a abdominal CT. The patient opted for the CT. An IV was started. A CBC, CMP were obtained. CBC showing H&H 60.9 and 39.0. Chemistry unremarkable. UA contaminated. A 1 L normal saline bolus was given. The CT as showing acute diverticulitis. I did discuss this with the patient, did tell her we'll go ahead and restart Flagyl, continue the Augmentin and follow up with Rene Thao in a couple of days for reevaluation and follow-up with Dr. Gupta for definitive care. The patient was sent home with a prescription for Flagyl and given 1 dose of Flagyl in the ER. The patient had no other questions or concerns at this time and was discharged home. 01/26/2018 6:25:42 pm I did review the normal abdominal x-ray with the patient, did tell her that there is no indication of constipation on the x-ray we discussed options such as CT of the abdomen and pelvis with contrast versus going home and observing, the patient elected to proceed with the CT of the abdomen and pelvis. Decision to Disposition Date: Jan 26, 2018 Decision to Disposition Time: 20:47 Depart Departure Latest Vital Signs Vital Signs Date Time Temp Pulse Resp B/P (MAP) Pulse Ox O2 Delivery O2 Flow Rate FiO2 01/26/18 20:00 119/59 (79) 01/26/18 19:51 53 13 92 01/26/18 18:03 3.0 01/26/18 17:19 98.0 Room Air Impression: Primary Impression: Diverticulitis Condition: Improved Disposition: HOME OR SELF-CARE Referrals: STEFFI CHRISTENSEN APRN SERGER-C (PCP) New Scripts Metronidazole (FLAGYL) 500 Mg Tablet 500 MG PO TID for 10 Days, #29 TAB 0 Refills Prov: BRENT JAFFE 01/26/18 Patient Instructions: Diverticulitis (ED), Diverticulitis Diet (ED) Additional Instructions: The CT did show diverticulitis. Try a clear liquid diet for the next 24 hours. Take the Flagyl as prescribed. Take the Augmentin as prescribed. Follow-up with Rene Christensen in one to 2 days for reevaluation. Follow-up with Dr. Diaz for definitive treatment of her diverticulitis. Continue to drink plenty of water. Get plenty of rest. Continue taking your regular medications. Return to the ER for any concerns or worsening symptoms. BRENT JAFFE Jan 26, 2018 17:23
--- NOTE | 2018-01-26 18:07 | RADIOLOGY IMAGING REPORT ---
[place] [facility] [place] Trice Tabares : 1955 MR: [id number] V: [id number] EXAM DATE: ORDERING PHYSICIAN: BRENT JAFFE TECHNOLOGIST: [place] [facility] [place] Patient: Trice Tabares : 1955 Visit/Account:[id number] Date of Sevice: 01/26/2018 EXAMINATION: Frontal chest with 2 views of the abdomen HISTORY: Evaluate for constipation. COMPARISON: CT abdomen/pelvis 11/07/2017. Chest radiograph 09/08/2017. FINDINGS: There are a few strands of scarring or linear atelectasis in the lower lungs. No new focal consolidat ion. No pleural effusion or pneumothorax. Stable cardiomediastinal silhouette. Normal bowel gas pattern, with air scattered throughout normal-caliber loops of small bowel and colon . No radiographic evidence of obstruction. Mild volume of scattered colonic stool. No free intraperit robin air. No evidence of organomegaly or abnormal calcification. No acute osseous findings. Multilevel degenera tive changes throughout the spine. IMPRESSION: 1. No evidence of acute cardiopulmonary disease. Mild scarring or atelectasis in the lower lungs. 2. Normal bowel gas pattern. Report Dictated By: Joe Eubanks MD at 01/26/2018 6:02 PM Report E-Signed By: Joe Eubanks MD at 01/26/2018 6:04 PM WSN:[id number]
[2018-01-26] MEDS ORDERED: NS(*) 0.9% 1000 ML BAG 1,000 ML IV ONE (18:25)
[2018-01-26] MEDS ORDERED: IOPAMIDOL 76% 75 ML INFUS BTL 75 ML ONE (18:34)
[2018-01-26 18:51] LABS: PLATELET COUNT, AUTOMATED 201 K/uL (150-450)
--- NOTE | 2018-01-26 20:08 | RADIOLOGY IMAGING REPORT ---
[place] [facility] [place] Trice Tabares : 1955 MR: [id number] V: [id number] EXAM DATE: ORDERING PHYSICIAN: BRENT JAFFE TECHNOLOGIST: Location: [facility] - [place] Patient: Trice Tabares : 1955 Visit/Account:[id number] Date of Sevice: 01/26/2018 EXAMINATION: CT abdomen and pelvis with IV contrast HISTORY: Left lower quadrant pain. Constipation. History of colitis. TECHNIQUE: Axial CT images of the abdomen and pelvis were obtained with IV contrast, with coronal a nd sagittal 2D reconstructed images. One of the following dose optimization techniques was utilized in the performance of this exam: Autom ated exposure control; adjustment of the mA and/or kV according to the patient's size; or use of an i terative reconstruction technique. Specific details can be referenced in the facility's radiology C T exam operational policy. Contrast: 75 mL of IV Isovue-370. COMPARISON: 11/07/2017. FINDINGS: Liver: Fatty infiltration of the liver. Gallbladder and bile ducts: Negative. Spleen: Negative. Pancreas: Negative. Adrenal glands: Negative. Kidneys: No urinary calculi or hydronephrosis. The kidneys enhance normally. Bowel and peritoneum: The small bowel and colon are normal in caliber. No bowel obstruction. Scatter ed colonic diverticulosis along the descending and sigmoid colon. There is segmental wall thickening and pericolonic stranding along the mid sigmoid colon in the left pelvis, compatible with diverticuli tis. No pericolonic abscess. No free fluid or free intraperitoneal air. The appendix is not well visu alized. It may be atrophic or surgically absent. Pelvic structures: Hysterectomy. Lymph node assessment: Negative. Vessels: Scattered vascular calcifications. Normal caliber abdominal aorta. Musculoskeletal: Advanced multilevel degenerative changes throughout the spine. No acute osseous fi ndings. Body wall: Negative. Lung bases: Mild parenchymal scarring in the lung bases. IMPRESSION: 1. Acute diverticulitis along the mid sigmoid colon in the left pelvis. No pericolonic abscess or yusuf e intraperitoneal air. 2. No other acute intra-abdominal findings. Report Dictated By: Joe Eubanks MD at 01/26/2018 7:53 PM Report E-Signed By: Joe Eubanks MD at 01/26/2018 8:04 PM [id number]
[2018-01-26 20:30] VITALS: BP 137/79
[2018-01-26] MEDS ORDERED: METR-1 PO (20:49)
[2018-01-26] MEDS ORDERED: METRONIDAZOLE 500 MG TABLET PO ONE (20:55)
== END 2018-01-26 21:03 | disposition home or self-care (01) ==
LOC: ER 17:24
DX: K57.92 Diverticulitis of intestine, part unspecified, without perforation or abscess without bleeding (principal)
CPT/HCPCS: 74022; 74177; 81001; 85025; 96360; 99284; J7030; Q9967; 82040; 82247; 82310; 82374; 82435; 82565; 82947; 84075; 84132; 84155; 84295; 84450; 84460; 84520

== ENCOUNTER 2018-02-04 07:02 | Outpatient (RCR) | payer MEDICARE, OTHER ==
[2015-01-15 10:01] VITALS: BMI 25.1
[~2018-02-04 07:02] MED LIST changes: +METR-1 PO
[2018-02-04] MEDS ORDERED: HYDR-385 PO (16:06)
[2018-02-04] MEDS ORDERED: DICY20TA70 PO (16:06)
[2018-02-04] MEDS ORDERED: LINA145C PO (16:06)
[2018-02-04 16:47] LABS: PLATELET COUNT, AUTOMATED 209 K/uL (150-450)
[2018-02-04 16:51] LABS: LDL CHOLESTEROL 54 mg/dl
[2018-02-05] MEDS ORDERED: IOPAMIDOL 76% 75 ML INFUS BTL 75 ML ONE (14:19)
--- NOTE | 2018-02-05 15:10 | RADIOLOGY IMAGING REPORT ---
FACILITY: [facility] PATIENT NAME: Trice Tabares : 1955 MR: [id number] V: [id number] EXAM DATE: ORDERING PHYSICIAN: STEFFI CHRISTENSEN TECHNOLOGIST: Location: [facility] Patient: Trice Tabares : 1955 Visit/Account:[id number] Date of Sevice: 02/05/2018 ABDOMEN/PELVIS W/WO CONTRAST Provided history: diverticulitis not improving Additional pertinent history: none TECHNIQUE: Spiral scan was obtained from the lower chest through the symphysis with intravenous cont rast Contrast dose: 75 mL Isovue 370 intravenously. Source images were reformatted in the coronal and sagittal planes. Additional series performed today: none One of the following dose optimization techniques was utilized in the performance of this exam: Autom ated exposure control; adjustment of the mA and/or kV according to the patient's size; or use of an i terative reconstruction technique. Specific details can be referenced in the facility's radiology CT exam operational policy. COMPARISON STUDIES: CT 01/26/18 FINDINGS: Lower chest: Stable bibasilar scarring or minimal atelectasis. No infiltrate. Liver/biliary: Negative Pancreas: Negative Spleen: Negative Adrenal glands: Negative Kidneys / ureters / bladder / genitourinary / retroperitoneum: Precontrast series demonstrates very s ubtle early calcification of the renal medulla both kidneys but no definable stones over a millimeter in size. There is no hydronephrosis. No stones the course of the ureters. Bowel / peritoneum / mesenteries: Advanced diverticulosis of the sigmoid colon. Continuing moderate w all thickening of the mid sigmoid and mild infiltration of surrounding fat, similar to prior exam. In the antrum, there has developed an intramural abscess in the mid sigmoid colon along the antimesente zahra border measuring 13 x 21 mm transverse diameter and 21 mm craniocaudal. It demonstrates mild rim enhancement. There is no extracolonic component. No free air. No secondary sites of diverticulitis el sewhere in the colon. No obstruction. No mesenteric thrombosis. Vessels: Moderate plaque, somewhat more than is typical for age. Lymph nodes: negative Body wall: Negative Bones: Advanced degenerative sclerosis at L1-2 and L2-3 is unchanged from prior. IMPRESSION: 1. Persisting or recurring diverticulitis of the sigmoid colon now with a developing intramural absce ss described above. 2. Otherwise stable chronic changes Report Dictated By: Dewayne Granados MD at 02/05/2018 2:57 PM Report E-Signed By: Dewayne Granados MD at 02/05/2018 3:08 PM WSN:[id number]
[2018-02-05] MEDS ORDERED: METR-1 PO (17:16)
[2018-02-05] MEDS ORDERED: CIPR-344 PO (17:16)
[2018-02-17] MEDS ORDERED: CIPR-344 PO (16:10)
[2018-02-17] MEDS ORDERED: METR-1 PO (16:10)
== END 2018-02-05 18:00 | disposition home or self-care (01) ==
LOC: CT 07:02 → LAB 16:08 → EDSTATUS 02-05 07:02 → CT 02-05 18:00
PROVIDERS: ATTEND Nurse Practitioner Family
DX: E78.5 Hyperlipidemia, unspecified (principal); I10 Essential (primary) hypertension; K57.32 Diverticulitis of large intestine without perforation or abscess without bleeding
CPT/HCPCS: 36415; 74178; 84443; 85025; Q9967; 82040; 82247; 82310; 82374; 82435; 82465; 82565; 82947; 83718; 84075; 84132; 84155; 84295; 84450; 84460; 84478; 84520

== ENCOUNTER 2018-03-16 01:01 | Day surgery (SDC) | payer MEDICARE, OTHER ==
[2015-01-15 10:01] VITALS: Ht 170.2 cm; Wt 93.9 kg
[~2018-03-16] VITALS: Ht 170.2 cm; Wt 93.9 kg
[~2018-03-16 01:01] MED LIST changes: +CIPR-344 PO; +FLU60SYR36 IM; -HYDR-4305 PO; +HYDR-627 PO; +LINA145C PO
[2018-03-16 08:42] VITALS: BP 142/80
[2018-03-16] MEDS ORDERED: NORMOSOL R SOLN(*) 1000 ML BAG 1,000 ML IV PRN (08:50)
[2018-03-16] MEDS ORDERED: LIDOCAINE/SOD BICARB 8.4% SYR ID ONE (08:50)
--- NOTE | 2018-03-16 09:12 | EKG ---
FACILITY: [facility] [place] PATIENT NAME: FRANK HUDSON : [id number] MR: [id number] V: [id number] EXAM DATE: ORDERING PHYSICIAN: AIRAM MORLEY TECHNOLOGIST: Test Reason : Pre-op Blood Pressure : / mmHG Vent. Rate : 047 BPM Atrial Rate : 047 BPM P-R Int : 156 ms QRS Dur : 098 ms QT Int : 468 ms P-R-T Axes : 047 026 054 degrees QTc Int : 414 ms Marked sinus bradycardia Abnormal ECG No previous ECGs available Confirmed by MAURO HENDRICKSON ([id number]) on 03/16/2018 12:26:49 PM Referred By: Confirmed By:MAURO HENDRICKSON
[2018-03-16 10:55] VITALS: BP 111/62
--- NOTE | 2018-03-16 11:00 | Short(Outpt) Discharge Summary ---
Discharge Summary Reason for Hosp/Final Diag: (1) Colon cancer screening Status: Chronic Hospital Course & Plan: Colonoscopy with polypectomy x3 completed without problems. (2) Diverticulitis Status: Chronic Departure Discharge to: Home, Self Care Discharge Instructions Home Meds Active Scripts Hydrocodone Bit/Acetaminophen (HYDROCODON-ACETAMINOPHEN 5-325) 1 Each Tablet, 1 EACH PO Q6H PRN for PAIN, #120 TAB 0 Refills May fill on or after 05/05/18 Prov:STEFFI CHRISTENSEN APRN-C 02/26/18 Buprenorphine (Butrans) 1 Each Patch.tdwk, 1 PATCH TP QWEEK, #4 PATCH 0 Refills May fill on or after 05/09/18 Prov:STEFFI CRHISTENSEN APRNC 02/26/18 Ciprofloxacin Hcl (CIPRO) 500 Mg Tablet, 1 TAB PO BID, #20 TAB 0 Refills Prov:MAURO CÁRDENAS MD 02/17/18 Metronidazole (FLAGYL) 500 Mg Tablet, 500 MG PO TID for 10 Days, #30 TAB 0 Refills Prov:MAURO CÁRDENAS MD 02/17/18 Dicyclomine Hcl (DICYCLOMINE HCL) 20 Mg Tablet, 1 TAB PO QID PRN for bowel cramps, #40 TAB 0 Refills Prov:STEFFI CHRISTENSEN APRNC 02/04/18 Hydrochlorothiazide (HYDROCHLOROTHIAZIDE) 12.5 Mg Tablet, 1 TAB PO QDAY, #90 TAB 2 Refills Prov:STEFFI CHRISTENSEN APRN 12/10/17 Rosuvastatin Calcium (Rosuvastatin Calcium) 10 Mg Tablet, 1 TAB PO DAILY, #90 TAB 0 Refills Prov:STFEFI CHRISTENSEN APRNC 12/10/17 Metoprolol Succinate (METOPROLOL SUCCINATE) 100 Mg Tab.er.24h, 1 TAB PO BID, #180 TAB 1 Refill Prov:STEFFI CHRISTENSEN APRN-C 09/28/17 Fluticasone Prop 50 Mcg Ns (FLONASE 50 MCG NS) 16 Gm [place].susp, 2 SPRAYS NS QDAY, #1 BOT 1 Refill Prov:TRUPTI FERRO DNP, FNP-BC 09/14/17 Mupirocin Chris 2% Cream (MUPIROCIN 2% CREAM) 15 Gm Cream..g., 1 SANCHO TP TID, #1 TUBE 1 Refill Apply to lesion 3 times daily until resolved - follow up if not improving after 3-5 days Prov:STEFFI CHRISTENSEN APRN [employer]-C 06/19/17 Olopatadine (PATANOL) 5 Ml Soln, 1 GTT OU BID, #5 ML 5 Refills Prov:TRUPTI FERRO DNP, [employer]-BC 09/19/16 Reported Medications Omeprazole Magnesium (PRILOSEC OTC) 20 Mg Tablet.dr, 1 TAB PO QDAY, TAB 11/07/17 Albuterol Sulfate 90 Mcg/Act (PROAIR HFA 90 MCG/ACT) 8.5 Gm Hfa.aer.ad, 2 PUFF IH PRN, INHALER 07/15/16 Tiotropium [place] (Spiriva Respimat) Unknown Strength Mist.inhal, 2 INH INH DAILY 07/15/16 Cetirizine Hcl (ZYRTEC) 10 Mg Capsule, 10 MG PO EVERY OTHER DAY, CAPSULE 01/13/15 Aspirin/Calcium Carbonate/Mag (ASPIRIN BUFFERED 325 MG TAB) 325 Mg Tablet, 325 MG PO BID 01/13/15 Discontinued Scripts Linaclotide (LINZESS) 145 Mcg Capsule, 1 CAP PO DAILY PRN for CONSTIPATION, #30 CAPSULE 1 Refill Prov:STEFFI CHRISTENSEN APRN [employer]-C 02/04/18 Diet: Regular Activity: As Tolerated Special Instructions: Your colonoscopy was completed without any problems and your prep was excellent (Good Job!!). I removed 3 small polyps from your colon and rectum and 2 were sent to pathology (1 was too small to be retrieved). You also had diverticulosis in your sigmoid colon but no active inflammation. My office will call you in the next couple of days to schedule a follow up appointment to see me in the office to discuss your pathology results and whether you should have surgery or not. MAURO CÁRDENAS MD Mar 16, 2018 11:00
[2018-03-16 11:30] VITALS: BP 114/93
[2018-03-16 12:05] VITALS: BP 142/82
[2018-03-16 12:07] VITALS: BP 155/83
== END 2018-03-16 13:39 | disposition home or self-care (01) ==
LOC: OR 01:01
PROVIDERS: ATTEND Surgery
DX: Z12.11 Encounter for screening for malignant neoplasm of colon (principal); D12.5 Benign neoplasm of sigmoid colon; K63.5 Polyp of colon; I10 Essential (primary) hypertension
CPT/HCPCS: 88305; 93005

== ENCOUNTER → 2018-06-09 | Outpatient (CLI) | payer MEDICARE, OTHER ==
[2015-01-15 10:01] VITALS: BMI 25.1
[~2018-06-09] MED LIST changes: +LISI-362 PO; -METR-160 PO; +METR500T54 PO; -RANI75TA5 PO; +RANI75TA51 PO; +TRIA15CR40 TP
[2018-06-09 09:04] LABS: PLATELET COUNT, AUTOMATED 170 K/uL (150-450)
[2018-06-09 09:48] LABS: LDL CHOLESTEROL 42 mg/dl
== END ==
LOC: LAB 08:37
PROVIDERS: ATTEND Nurse Practitioner Family
DX: J44.9 Chronic obstructive pulmonary disease, unspecified (principal); E78.5 Hyperlipidemia, unspecified; E53.8 Deficiency of other specified B group vitamins; I10 Essential (primary) hypertension
CPT/HCPCS: 36415; 82040; 82247; 82310; 82374; 82435; 82465; 82565; 82607; 82746; 82947; 83718; 84075; 84132; 84155; 84295; 84443; 84450; 84460; 84478; 84520; 85025

== ENCOUNTER → 2018-06-15 | Outpatient (CLI) | payer MEDICARE, OTHER ==
[2015-01-15 10:01] VITALS: BMI 25.1
[~2018-06-15] MED LIST changes: +METR500T15 PO; -METR500T54 PO
== END ==
LOC: LAB 09:32
PROVIDERS: ATTEND Nurse Practitioner Family
DX: E53.8 Deficiency of other specified B group vitamins (principal); I10 Essential (primary) hypertension
CPT/HCPCS: 36415; 82310; 82374; 82435; 82565; 82947; 83090; 83921; 84132; 84295; 84520

== ENCOUNTER → 2018-08-26 | Outpatient (CLI) | payer MEDICARE, OTHER ==
[2015-01-15 10:01] VITALS: BMI 25.1
[~2018-08-26] MED LIST changes: +HYDR-654 PO; +LISI-351 PO
== END ==
LOC: RESP 01:42
PROVIDERS: ATTEND Internal Medicine
DX: G47.30 Sleep apnea, unspecified (principal)

== ENCOUNTER → 2018-11-02 | Outpatient (CLI) | payer MEDICARE, OTHER ==
[2015-01-15 10:01] VITALS: BMI 25.1
[~2018-11-02] MED LIST changes: +HYDR30CR10 TP; -RANI-366 PO; +RANI-54 PO
--- NOTE | 2018-11-02 11:38 | EKG ---
FACILITY: [facility] PATIENT NAME: FRANK HUDSON : [id number] MR: [id number] V: [id number] EXAM DATE: ORDERING PHYSICIAN: MAURO HDEZ TECHNOLOGIST: JANICE Núñez Reason : PREOP Blood Pressure : / mmHG Vent. Rate : 057 BPM Atrial Rate : 057 BPM P-R Int : 158 ms QRS Dur : 090 ms QT Int : 414 ms P-R-T Axes : 071 069 074 degrees QTc Int : 402 ms Sinus bradycardia Otherwise normal ECG No previous ECGs available Confirmed by MAURO HENDRICKSON ([id number]) on 11/02/2018 2:30:00 PM Referred By: Confirmed By:MAURO HENDRICKSON
== END ==
LOC: LAB 11:12
PROVIDERS: ATTEND Anesthesiology
DX: Z01.810 Encounter for preprocedural cardiovascular examination (principal); Z01.812 Encounter for preprocedural laboratory examination; R00.1 Bradycardia, unspecified; H57.819 Brow ptosis, unspecified; H53.40 Unspecified visual field defects
CPT/HCPCS: 36415; 82040; 82247; 82310; 82374; 82435; 82565; 82947; 84075; 84132; 84155; 84295; 84450; 84460; 84520; 93005

== ENCOUNTER → 2019-01-03 | Outpatient (CLI) | payer MEDICARE, OTHER ==
[2015-01-15 10:01] VITALS: BMI 25.1
[~2019-01-03] MED LIST changes: +ASPI-1471 PO; +GUAI120L3 PO
--- NOTE | 2019-01-03 16:09 | RADIOLOGY IMAGING REPORT ---
FACILITY: [facility] PATIENT NAME: Trice Tabares : 1955 MR: [id number] V: [id number] EXAM DATE: ORDERING PHYSICIAN: STEFFI CHRISTENSEN TECHNOLOGIST: Location: [facility] Patient: Trice Tabares : 1955 Visit/Account:[id number] Date of Sevice: 01/03/2019 Exam type: HIP LEFT History: left hip / groin pain no history of trauma Comparison: None. Findings: Two views were submitted. There are mild degenerative changes of the left hip joint with joint space narrowing. Similar changes are identified on the right. There is no evidence of acute fracture or dislocation. Moderate degenerative changes the visualized lower lumbar spine also noted IMPRESSION: 1. Mild degenerative changes of the hip joints Degenerative changes of the lower lumbar spine Report Dictated By: Tequila Cisse MD at 01/03/2019 3:57 PM Report E-Signed By: Tequila Cisse MD at 01/03/2019 4:01 PM WSN:[email or web address]
== END ==
LOC: RAD 13:35
PROVIDERS: ATTEND Nurse Practitioner Family
DX: M16.0 Bilateral primary osteoarthritis of hip (principal); M51.36 Other intervertebral disc degeneration, lumbar region